=== PATIENT | male | born 1975 | race Caucasian/White ===

== ENCOUNTER 2017-07-22 10:58 | Emergency (ER) | payer OTHER ==
[~2017-07-22] VITALS: Ht 185.4 cm; Wt 83.9 kg
--- NOTE | ~2017-07-22 | CR181 ---
[facility] A Service of [facility] & [facility] RADIOLOGY TEXT RESULTS PATIENT: TUAN ANDERSON JR LOCATION: [facility] : 71 UNIT #: [id number] AGE: [address]: Isa Colon SEX: M ORDER DR: [id number] [facility] [address] [place], [place] [address] [id number] E MR#: [id number] Acc #: [id number] NAME: TUAN ANDERSON JR : 1975 SEX: M STUDY DATE/TIME: 07/22/2017 11:36 UNIT: [facility] ROOM: STUDY DESCRIPTION: CR Lumbar Spine 2 or 3 Views Attending Physician: Isa Colon P.A.-C. Referring Physician: Elliott Sanz M.D. Ordering Physician: Isa Colon P.A.-C. Primary Care Physician: Elliott Sanz M.D. MEDICAL IMAGING REPORT This report is preliminary unless electronic signature is present EXAM Lumbar spine series, 07/22/2017, 1136 hours. CLINICAL HISTORY Patient complains of lower back pain and left hip pain since yesterday. COMPARISON CT abdomen and pelvis, 01/27/2014. FINDINGS AP, lateral and cone lateral view of the lumbosacral junction were performed. There are 5 non-rib bearing lumbar type vertebrae which are normally aligned. Vertebral body and disc heights are normal. There is no fracture or subluxation. No change from CT abdomen and pelvis. Sagittal and coronal reconstructions performed 01/31/2014. IMPRESSION Negative lumbar spine series. No change from sagittal and coronal reconstructions of the spine 01/27/2014 CT abdomen. Dictated by... Radha Morrell M.D. THIS IS AN ELECTRONICALLY VERIFIED REPORT Radha Morrell M.D. at 07/23/2017 9:29 AM Vania TD: 07/22/2017 20:42 JOB #: [id number] MEDICAL IMAGING REPORT Page 1 of 1 COPY
[~2017-07-22 10:58] MED LIST: ACETAMINOPHEN PO; ACTOS PO; ADVIL200 M2 PO; AMARYL PO; ASPIRIN PO; ASPIRIN81 M1 PO; ASPIRIN81 M2 PO; ASPIRINEC PO; BENZONATATE PO; BYETTA10 MCG/0.0 INJ; CAPOZIDE; CARVEDILOL12.5 MG PO; CERTAGEN PO; CLARITIN10 M3 PO; COREG PO; COREG12.5 MG PO; CRESTOR PO; DOXYCYCLINE150 MG PO; FLAGYL PO; IBUPROFEN PO; JANUMET 50-1,1 UDTAB PO; JANUVIA PO; KEPPRA PO; KEPPRA750 M1 PO; KEPPRA750 MG PO; LANTUS SOLOSTAR3 ML SQ; LANTUS SUBQ; LANTUS100 U/ML SUBQ; LEVAQUIN PO; LISINOPRIL; LISINOPRIL PO; LISINOPRIL-HCTZ1 T14 PO; METFORMIN HCL500 M1 PO; METFORMIN PO; MEVACOR PO; MEVACOR40 MG PO; MUCINEX DM TABL1 BOX PO; MUCINEX DM1 TAB.SR . PO; MULTI-VITAMIN1 EAC1 PO; NASACORT AQ16.5 GM; NOVOLOG SUBQ; NOVOLOG100 U/ML SUBQ; PERIDEX480 ML PO; PHENERGAN DM1 ML PO; PRILOSEC20 M1 PO; TYLOX 5/500 CAP1 CAP PO; ZESTORETIC 20/11 TAB PO; ZITHROMAX PO; ZOFRANODT SL; ZOLOFT PO
== END 2017-07-22 12:40 | disposition home or self-care (01) ==
LOC: CED 10:58 → CFTX 10:58
DX: S33.5XXA Sprain of ligaments of lumbar spine, initial encounter (principal); M54.10 Radiculopathy, site unspecified; E11.9 Type 2 diabetes mellitus without complications; I10 Essential (primary) hypertension; F32.9 Major depressive disorder, single episode, unspecified; X58.XXXA Exposure to other specified factors, initial encounter; Y93.89 Activity, other specified; Y92.69 Other specified industrial and construction area as the place of occurrence of the external cause
CPT/HCPCS: 72100; 99283; J1885

== ENCOUNTER 2017-07-22 14:21 | Emergency (ER) | payer OTHER ==
[~2017-07-22] VITALS: Ht 185.4 cm; Wt 83.9 kg
== END 2017-07-22 17:05 | disposition left against medical advice (07) ==
LOC: CED 14:21
DX: Z53.21 Procedure and treatment not carried out due to patient leaving prior to being seen by health care provider (principal)